=== PATIENT | female | born 1960 | race Caucasian/White ===

== ENCOUNTER 2018-11-19 15:57 | Emergency (ER) | payer OTHER ==
[~2018-11-19] VITALS: Ht 167.6 cm; Wt 72.7 kg
[2018-11-19 15:58] VITALS: TEMP 97.4
[2018-11-19] MEDS ORDERED: LIPITOR 40MG TA40 MG PO (16:03)
[2018-11-19] MEDS ORDERED: ASPIRIN 81M81 MG/TA2 PO (16:03)
[2018-11-19] MEDS ORDERED: CELEXA 20MG20 MG/TAB PO (16:04)
[2018-11-19] MEDS ORDERED: TOPROL XL 25MG25 MG PO (16:04)
[2018-11-19] MEDS ORDERED: BRILINTA90 MG PO (16:04)
[2018-11-19] MEDS ORDERED: CHANTIX 1MG1 MG PO (16:05)
[2018-11-19 16:32] LABS: BASO % 0.5 % (0.0-2.0); EOS # 0.2 (0.0-0.7); EOS % 2.4 % (0-4.0); GRAN # 5.1 (1.4-6.5); GRAN % 64.1 % (42.2-75.2); HEMATOCRIT 40.5 % (37.0-47.0); HEMOGLOBIN 13.4 g/dl (12.5-16.0); LYMPH # 1.8 (1.2-3.4); LYMPH % 23.3 % (20.0-51.0); MEAN CELL VOLUME 90 fl (80.0-100.0); MEAN CORPUSCULAR HEMOGLOBIN 30 pg (27.0-31.0); MEAN CORPUSCULAR HGB CONC 33 g/dl (33.0-37.0); MEAN PLATELET VOLUME 9.7 fl (7.4-10.4); MONO # 0.7 (0.1-0.6); MONO % 8.2 % (1.7-9.3); PLATELET COUNT 261 K/mm3 (130-400); RED BLOOD COUNT 4.49 M/mm3 (4.10-5.30); REDCELL DISTRIBUTION WIDTH-CV 14.1 % (11.5-14.5)
[2018-11-19 16:48] LABS: ALANINE AMINOTRANSFERASE 46 U/L (9-52); ALBUMIN 3.9 gm/dL (3.5-5.0); ALKALINE PHOSPHATASE 78 U/L (50-136); ANION GAP 8 mmol/L (7-16); AST,SGOT 35 U/L (15-37); BILIRUBIN,TOTAL 0.5 mg/dL (0.0-1.0); BLOOD UREA NITROGEN 18 mg/dL (7-17); CARBON DIOXIDE 24 mmol/L (22-30); CHLORIDE 104 mmol/L (98-107); CREATINE KINASE 61 U/L (30-135); CREATININE, serum 0.81 mg/dL (0.52-1.25); GLUCOSE 137 mg/dL (74-106); LIPASE 57 U/L (23-300); SODIUM 137 mmol/L (137-145); TOTAL PROTEIN 6.9 gm/dL (6.4-8.2)
[2018-11-19 17:00] LABS: TROPONIN-I < 0.012 ng/mL (0.000-0.035)
[2018-11-19 18:33] VITALS: BP 107/77; PULSE 64
== END 2018-11-19 18:33 | disposition short-term general hospital (02) ==
LOC: COL.ER 15:57
PROVIDERS: Emergency Medicine
DX: R07.89 Other chest pain (principal); F17.210 Nicotine dependence, cigarettes, uncomplicated; Z90.710 Acquired absence of both cervix and uterus; Z90.89 Acquired absence of other organs; Z95.5 Presence of coronary angioplasty implant and graft